=== PATIENT | female | born 1990 | race Caucasian/White ===

== ENCOUNTER 2021-02-11 20:19 | Outpatient (CLI) | payer OTHER ==
[~2021-02-11 20:19] MED LIST: COLACE 100MG C100 MG PO; IBUPROFEN600 MG PO; NORCO 5-325 TA1 EACH PO
== END 2021-02-12 01:09 | disposition home or self-care (01) ==
LOC: GENOP 20:19
DX: O60.03 Preterm labor without delivery, third trimester (principal); Z3A.37 37 weeks gestation of pregnancy
CPT/HCPCS: 81001; 96360; 96367; J0696; J7120

== ENCOUNTER 2021-02-13 16:27 | Inpatient (IN) | payer OTHER ==
[~2021-02-13] VITALS: Ht 170.2 cm; Wt 94.3 kg
[2021-02-13 17:31] LABS: HEMOGLOBIN 10.3 gm/dl (12.3-15.3); RED BLOOD COUNT 3.89 M/UL (4.00-5.10)
[2021-02-15 07:31] LABS: HEMOGLOBIN 9.8 gm/dl (12.3-15.3)
[2021-02-15] MEDS ORDERED: DOCUSATE SODIU100 MG PO (16:50)
[2021-02-15] MEDS ORDERED: HYDROCODON-ACE1 EAC4 PO (16:50)
[2021-02-15] MEDS ORDERED: IBUPROFEN600 MG PO (16:50)
== END 2021-02-15 19:10 | disposition home or self-care (01) | DRG 807 ==
LOC: GENOP 16:27 → OB 17:49
PROVIDERS: ADMIT Obstetrics & Gynecology
PROC: 10E0XZZ Delivery of Products of Conception, External Approach (ICD-10-PCS; principal; 2021-02-13)
PROC: 0KQM0ZZ Repair Perineum Muscle, Open Approach (ICD-10-PCS; 2021-02-13)
PROC: 3E033VJ Introduction of Other Hormone into Peripheral Vein, Percutaneous Approach (ICD-10-PCS; 2021-02-13)
PROC: 10907ZC Drainage of Amniotic Fluid, Therapeutic from Products of Conception, Via Natural or Artificial Opening (ICD-10-PCS; 2021-02-13)
PROC: 0U7C7ZZ Dilation of Cervix, Via Natural or Artificial Opening (ICD-10-PCS; 2021-02-13)
PROC: 4A1HXCZ Monitoring of Products of Conception, Cardiac Rate, External Approach (ICD-10-PCS; 2021-02-13)
DX: O13.4 Gestational [pregnancy-induced] hypertension without significant proteinuria, complicating childbirth (principal); Z37.0 Single live birth; Z3A.37 37 weeks gestation of pregnancy; Z20.822 Contact with and (suspected) exposure to COVID-19; O70.1 Second degree perineal laceration during delivery
CPT/HCPCS: 36415; 51702; 82800; 85014; 85018; 85025; 90471; J2405; J2590; J7120; U0003